=== PATIENT | female | born 1955 | race Two or more races ===

== ENCOUNTER 2020-07-18 06:46 | Day surgery (SDC) | payer MEDICAID ==
[~2020-07-18] VITALS: Ht 162.6 cm; Wt 77.1 kg
[~2020-07-18 06:46] MED LIST: ASPI-498 PO; CARV6.2551 PO; HYDR12.56 PO; LOSA-69 PO; SIMV-8 PO
[2020-07-18] MEDS ORDERED: IODIXANOL 320MG/ML 100ML BTL IV ONE (07:23)
[2020-07-18] MEDS ORDERED: LIDOCAINE 2%HCL (LOCAL ANESTH.) INJ 20ML MDV ONE (07:23)
[2020-07-18] MEDS ORDERED: MIDAZOLAM HCL 1MG/1ML-2 ML VIAL ONE (08:17)
[2020-07-18] MEDS ORDERED: HEPARIN SODIUM (PORCINE) 5000 UNITS/ML 1ML VIAL ONE (08:17)
[2020-07-18] MEDS ORDERED: fentaNYL CITRATE 100 MCG/2 ML VL ONE (08:17)
[2020-07-18] MEDS ORDERED: ANGIOMAX 250 MG VIAL IV ONE (08:17)
[2020-07-18] MEDS ORDERED: VERAPAMIL 2.5MG/ML INJ 2ML VIAL IV ONE (08:17)
[2020-07-18] MEDS ORDERED: SODIUM CHL 0.9% 0 ML ONE (08:18)
== END 2020-07-18 11:59 | disposition home or self-care (01) ==
LOC: EDBD → CATH 06:46
PROVIDERS: ATTEND Internal Medicine Cardiovascular Disease
DX: I25.10 Atherosclerotic heart disease of native coronary artery without angina pectoris (principal); I10 Essential (primary) hypertension; E78.5 Hyperlipidemia, unspecified; E11.9 Type 2 diabetes mellitus without complications; Z20.822 Contact with and (suspected) exposure to COVID-19; Z98.890 Other specified postprocedural states; Z79.899 Other long term (current) drug therapy
CPT/HCPCS: 93458; C1887; C1894; J1644; J2250; J3010; J7030; Q9967; U0003; 99152; 99153